=== PATIENT | male | born 1955 | race Caucasian/White ===

== ENCOUNTER 2022-03-31 06:03 | Observation (INO) ==
--- NOTE | 2022-02-28 15:37 | PAT Medication Instructions ---
Medication Instructions Date of Service February 28, 2022 Home Medications amlodipine 5 mg tablet 5 mg PO QAM atorvastatin 20 mg tablet 10 mg PO QAM cetirizine 10 mg tablet (Zyrtec) 10 mg PO QAM cholecalciferol (vitamin D3) 125 mcg (5,000 unit) tablet (Vitamin D3) 125 mcg PO QAM DO NOT take the morning of surgery cetirizine 10 mg tablet (Zyrtec) 10 mg PO QAM cholecalciferol (vitamin D3) 125 mcg (5,000 unit) tablet (Vitamin D3) 125 mcg PO QAM Take morning of surgery With a small sip of water, OTHERWISE NOTHING TO EAT OR DRINK AFTER MIDNIGHT: amlodipine 5 mg tablet 5 mg PO QAM atorvastatin 20 mg tablet 10 mg PO QAM Other Notes If you have any questions please call us at [phone] or [phone] or [phone] or [phone]
--- NOTE | 2022-03-06 09:24 | Anesthesiology Consultation ---
Date of Service March 06, 2022 Assessment & Plan (1) Encounter for pre-operative examination: Chart Review Chart Review: Acceptable Risk for Surgery (pending PCP clearance 03/14/22) and Patient seen in Pre Admission Testing -Awaiting surgeon ordered PCP clearance scheduled 03/14/22 Per PAT appt on 03/06/22, patient denies any recent travel or large group activities. Pt is NOT vaccinated for Covid. Will leave to surgeon's discretion if preop Covid testing needed. Educated on importance of using Covid precautions one week prior to surgery History Surgery Operation Date: 03/31/22 12:25 Proposed Procedures p C5-C6, C6-C7 Anterior Cervical Discectomy and Fusion, Spinal Cord Monitoring - William Lees, Height/Weight Height: 6 ft Weight: 91.1 kg Allergies Allergy/AdvReac Type Severity Reaction Status Date / Time No Known Allergies Allergy Verified 02/28/22 13:46 Medications Home Medications Medication Instructions Recorded Confirmed Last Taken amlodipine 5 mg tablet 5 mg PO QAM 02/28/22 02/28/22 Unknown atorvastatin 20 mg tablet 10 mg PO QAM 02/28/22 02/28/22 Unknown cetirizine 10 mg tablet (Zyrtec) 10 mg PO QAM 02/28/22 02/28/22 Unknown cholecalciferol (vitamin D3) 125 125 mcg PO QAM 02/28/22 02/28/22 Unknown mcg (5,000 unit) tablet (Vitamin D3) Past Medical History Medical History DDD (degenerative disc disease) HLD (hyperlipidemia) HTN (hypertension) Osteoarthritis Exercise / Class Metabolic Activity II 4-5 Yardwork/Stairs/Walk up hill (one flight of stairs- no chest pain or SOB ) Past Family History Family History Other No family history of adverse response to anesthesia Past Surgical History Surgical History History of colonoscopy History of right inguinal hernia repair Past Anesthesia History No Hx of Anesthesia Complications and No Family Hx of Anesthesia Complications History of PONV No Hx of PONV and No Hx of Motion Sickness Social History Smoking Status: Never smoker Do You Dip or Chew Tobacco: No Hx Alcohol Use: Yes Alcohol type: beer alcohol intake frequency: a few times a week Hx Substance Use: No substance use type: does not use Review of Systems Occ reflux- diet dependent- mild Occ snoring - no witnessed apnea- no hx of sleep study Patient denies chest pain, shortness of breath, dyspnea on exertion, cough, wheezing, palpitations. No hx of seizures, stroke, [place]. No hx of blood clots or blood transfusions Physical Exam Vital Signs VITALS BP 156/90 (manually- pt in increased pain/stressed with surgery/pain) P 83 TEMP 98.2 SP02 97% RESP 16 Constitutional no acute distress ENMT Mouth: no TMJ clicking Thyromental Distance: > or= 3.5 Finger Breadths (3.5) Mallampati Class: II Mouth / Teeth: 1. Capped Neck + limited neck extension (significant) Respiratory normal respiratory effort; no respiratory distress Auscultation: lungs clear to auscultation bilaterally; no wheezes Cardiovascular Rate/Rhythm: regular rate and regular rhythm Heart Sounds: no murmur Vessels: no carotid bruit Musculoskeletal Spine: no pain with cervical ROM Extremities: extremities normal to inspection Psychiatric Orientation: alert Lab Results Anesthesia Preop Results Results Anesthesia Widget: WBC 4.96 K/ul (4.8-10.8) 03/06/22 Hgb 17.0 g/dl (14.0-18.0) 03/06/22 Hct 47.3 % (40.1-51.0) 03/06/22 Plt 147 K/uL (130-400) 03/06/22 Na 136 mmol/L (136-145) 03/06/22 K 4.0 mmol/L (3.5-5.1) 03/06/22 Cl 103 mmol/L (98-107) 03/06/22 CO2 27 mmol/L (21-32) 03/06/22 BUN 10 mg/dl (6-23) 03/06/22 Creat 0.75 mg/dl (0.6-1.4) 03/06/22 Glucose Level 89 mg/dl (70-99(Fasting)) 03/06/22 PT 11.0 Seconds (9.0-12.0) 03/06/22 PTT 25.0 Seconds (21.0-31.0) 03/06/22 INR 1.0 (0.9-1.1) 03/06/22 Urine Color Yellow 03/06/22 Urine Appearance Clear (Clear) 03/06/22 Urine pH 8.0 (4.5-7.5) H 03/06/22 Urine Specific [place] 1.010 (1.000-1.030) 03/06/22 Urine Protein Negative (Negative) 03/06/22 Urine Glucose (UA) Trace (Negative) H 03/06/22 Urine Ketones Negative (Negative) 03/06/22 Urine Blood Negative (Negative) 03/06/22 Urine Nitrite Negative (Negative) 03/06/22 Urine Bilirubin Negative (Negative) 03/06/22 Urine Urobilinogen Negative (Negative) 03/06/22 Urine Leukocyte Esterase Negative (Negative) 03/06/22 Blood Type A Negative 03/06/22 Antibody Screen NEGATIVE 03/06/22 Testing Electrocardiogram Date: 03/06/22 Findings: + NSR @ (70bpm) Moderate voltage criteria for LVH, may be normal variant Chest X-Ray Date: 03/06/22 Findings: + NAD COVID-19 Risk Screen Screening Information COVID-19 Screen Date: 03/06/22 Exposure 21 Days Family/Household +COVID Last 21 Days: No Exposure 10 Days Any COVID Exposure Last 10 Days: No Symptoms Last 10 Days Experienced COVID Sx Last 10 Days: No + COVID 0-90 Days COVID + in Last 0-90 Days: No Risk Plan COVID Risk Plan: No Risk Identified Patient Education COVID Preop Screening Education Complete: Yes
[~2022-03-31 06:03] MED LIST: ACETAMINOPHEN 500 MG TAB PO SCH; CeleBREX 200 MG CAP PO SCH; GABAPENTIN 600 MG DOSE PO SCH; LR 15ML/HR IV SCH; ceFAZolin 2000MG 2,000 MG/15 ML SYR IV SCH
[2022-03-31] MEDS ORDERED: ceFAZolin 330 MG/ML 1 GM VIAL ONE (06:43)
[2022-03-31] MEDS ORDERED: PROPOFOL IV EMULSION 10 MG/ML 100 ML VIAL IV ONE (06:49)
[2022-03-31] MEDS ORDERED: ONDANSETRON INJ 2 MG/ML 2 ML VIAL ONE (06:53)
[2022-03-31] MEDS ORDERED: SUCCINYLCHOLINE CHLORIDE 20 MG/ML 10 ML VIAL IV ONE (06:53)
[2022-03-31] MEDS ORDERED: DEXAMETHASONE SOD INJ 4 MG/ML VIAL ONE (06:53)
[2022-03-31] MEDS ORDERED: LIDOCAINE 2% MPF LOCAL 5 ML VIAL INFIL ONE (06:53)
[2022-03-31] MEDS ORDERED: MIDAZOLAM HCL 1 MG/ML 2ML VIAL ONE (06:53)
[2022-03-31] MEDS ORDERED: fentaNYL citrate 100 MCG/2 ML VIAL ONE ×2 (06:53→08:35)
[2022-03-31] MEDS ORDERED: PROPOFOL IV EMULSION 10 MG/ML 20 ML VIAL IV ONE (06:53)
[2022-03-31] MEDS ORDERED: ROCURONIUM BROMIDE 10 MG/ML 5 ML VIAL IV ONE ×2 (06:53→08:36)
[2022-03-31] MEDS ORDERED: ONDANSETRON INJ 2 MG/ML 2 ML VIAL IV PRN ×2 (07:08→11:18)
[2022-03-31] MEDS ORDERED: ATROPINE SULFATE 0.1 MG/ML 10ML SYR IV PRN (07:08)
[2022-03-31] MEDS ORDERED: HYDROmorphone INJ 2 MG/ML SYR/VIAL IV PRN (07:08)
[2022-03-31] MEDS ORDERED: ePHEDrine sulfate 50 MG/ML AMP IV PRN (07:08)
--- NOTE | 2022-03-31 07:39 | History & Physical Bridge Note ---
Date of Service March 31, 2022 History & Physical Bridge Note I have examined the patient, reviewed the History & Physical and in the interval since the performance of the History & Physical I have noted the following changes of clinical significance: no changes noted
--- NOTE | 2022-03-31 07:41 | History & Physical Report ---
Date of Service March 31, 2022 Assessment & Plan (1) Cervical stenosis of spinal canal: Plan: C5-C6 C6-7 anterior cervical discectomy and fusion History of Present Illness Chief Complaint: Neck and arm pain Primary Care Provider: NO PCP 66-year-old with chronic persistent neck and arm pain. Of failed extensive course of nonoperative care is here for surgical intervention. Allergies Allergy/AdvReac Type Severity Reaction Status Date / Time No Known Allergies Allergy Verified 03/31/22 06:26 Home Medications Medication Instructions Recorded Confirmed Type amlodipine 5 mg tablet 5 mg PO QAM 02/28/22 03/31/22 History atorvastatin 20 mg tablet 10 mg PO QAM 02/28/22 03/31/22 History cetirizine 10 mg tablet (Zyrtec) 10 mg PO QAM 02/28/22 03/31/22 History cholecalciferol (vitamin D3) 125 125 mcg PO QAM 02/28/22 03/31/22 History mcg (5,000 unit) tablet (Vitamin D3) Past Med/Surg History Medical History DDD (degenerative disc disease) HLD (hyperlipidemia) HTN (hypertension) Osteoarthritis Surgical History History of colonoscopy History of right inguinal hernia repair Family History Other No family history of adverse response to anesthesia Social History Smoking Status: Never smoker Second Hand Exposure: No; Do You Dip or Chew Tobacco: No; Hx Alcohol Use: Yes Alcohol type: beer Hx Substance Use: No Preferred Language: Urdu Communication Ability: Effective Asian Art Curator Required: No Beliefs That Will Affect Care: None Current Living Situation: Family Feels Safe at Home: Yes Safety Concerns: Feels Safe At This Time Assistive Devices: Glasses Assistive Devices Comment: reading glasses Physical Exam Physical Exam: Patient is alert and oriented Heart regular rhythm Lungs clear Results & Data Results & Data ([facility]) Vital Signs (Past 12 Hours) Vital Signs Temp Pulse Resp BP Pulse Ox O2 Del Method 03/31/22 06:22 36.9 C 82 20 155/102 H 97 Room Air
[2022-03-31] MEDS ORDERED: GLYCOPYRROLATE 0.2 MG/ML VIAL ONE (08:45)
[2022-03-31] MEDS ORDERED: NEOSTIGMINE METHYLSULFATE 1 MG/ML 10ML VIAL ONE (08:45)
--- NOTE | 2022-03-31 09:29 | Operative Report ---
Post Operative Report Pre & Post Diagnosis Operation Date: 03/31/22 07:45 Pre-Op Diagnosis: Cervical spinal stenosis with radiculopathy Post-Op Diagnosis: Same I identified the patient and participated in the time-out.: Yes Procedure Operation Date: 03/31/22 07:45 Actual Procedures #1 anterior cervical discectomy and fusion C5-C6 and C6-C7. #2 anterior cervical arthrodesis C5-C6 C6-C7. #3 placement of Spira 8 mm cage at C5-C6 and 10 mm cage at C6-C7 both filled with I factor. #4 application of moscoso plate and screws from C5-C7. Surgeon William Lees, Gas Welder Sen Fernandez Estimated Blood Loss 10 Findings Consistent with Post-Op Diagnosis Specimens None Indications This is a 66-year-old male who presents above-mentioned diagnosis after failed course of nonoperative care is here for surgical invention. Description of Procedure Patient was met with preoperatively Case discussed all questions were addressed point time. Patient was taken back to operative suite underwent a patient placed in a supine position the Ollie table the head [place] head order. All bony prominences well-padded eyes inspected to ensure no external pressure placed upon the. This point the anterior cervical spine was prepped and draped in normal sterile fashion. The assistance of fluoroscopy identified the C C6 vertebral body and a transverse incision was placed along the right anterior aspect of the cervical spine overlying his region. Blunt dissection with the assistance of bipolar blunt dissection performed down to and exposing the anterior cervical spine from c 5 to C7. A complete discectomy was then performed at C5-C6 out to the uncovertebral's bilaterally. Angle Inlet distractor pins utilized to assist in visualization. Removed all posterior annular fibers longitudinal ligament bilateral foraminotomies performed. Endplates burred to subcortically bone and 8 mm spiral cage filled with I factor tapped in position. Then proceeded to C6-C7. Again complete discectomy performed out to the uncal vertebral joints bilaterally. Angle Inlet distracting pins again utilized. Removed all posterior annular fibers longitudinal ligament bilateral foraminotomies performed. Endplates burred to subcortical bleeding bone and a 10 mm spiral cage filled with I factor tapped in position. Distracting apparatus was removed all anterior osteophytes burred to a smooth cortical surface and a K2 M plate and screws applied with the assistance of fluoroscopy. The incision was then copiously irrigated explored to ensure no damage to surrounding structures or remaining bleeding. 10 round CLIFTON drain inserted. The incision was then closed with 2 Vicryl in the fascia and 4 Monocryl for fascial closure. Steri-Strips dressings placed. Patient waken taken to the PACU in stable condition. Please note spinal cord monitoring visualized at the procedure no changes noted. Barbra Fernandez was present at the entire surgery and while the patient positioning complex portion of the surgery and fascial closure. I attest to the content of the Intraoperative Record and any orders documented therein. Any exceptions are noted below.
--- NOTE | 2022-03-31 10:07 | Fluoroscopy Report ---
FL cervical 2-3V CLINICAL HISTORY: ACDF C5-C6 AND C6-C7 COMPARISON STUDY: None. FLUOROSCOPY TIME: 13 seconds. FLUOROSCOPIC IMAGES: 3 FINDINGS: Fluoroscopy was provided during C5-C7 anterior discectomy and fusion. Hardware is intact. T here is a surgical drain. Endotracheal tube is partially imaged. IMPRESSION: Fluoroscopy provided during C5-C7 anterior discectomy and fusion. ACT 112: Negative or not required by law. Electronically signed by: Asim Nolan M.D. 03/31/2022 10:06 AM
[2022-03-31] MEDS: fentaNYL citrate 100 MCG/2 ML VIAL IV PRN ×4 (10:11→10:27)
--- NOTE | 2022-03-31 11:03 | Anesthesiology Progress Note ---
Date of Service March 31, 2022 Anesthesia Post Procedure Vital Signs Vital Signs: Temp Pulse Pulse Resp BP Pulse Ox O2 Del Method 03/31/22 10:55 91 H 15 142/88 H 96 Nasal Cannula 03/31/22 10:45 36.0 C L 91 H 17 148/99 H 96 Nasal Cannula 03/31/22 10:35 68 10 L 137/85 95 Nasal Cannula 03/31/22 10:25 83 13 140/90 95 Nasal Cannula 03/31/22 10:15 79 14 138/94 91 Room Air 03/31/22 10:05 100 H 17 141/85 H 97 Oxymask 03/31/22 09:55 73 13 124/76 97 Oxymask 03/31/22 09:46 36.3 C L 77 12 132/80 97 Oxymask 03/31/22 06:22 36.9 C 82 20 155/102 H 97 Room Air O2 Flow Rate 03/31/22 10:55 2 03/31/22 10:45 2 03/31/22 10:35 2 03/31/22 10:25 2 03/31/22 10:15 03/31/22 10:05 7 03/31/22 09:55 7 03/31/22 09:46 7 03/31/22 06:22 Pain Intensity Neck: Pain Intensity: 5 Transfer of Care Handoff Completed per policy Notes Mental Status: alert / awake / arousable and participated in evaluation Patient Amnestic to Procedure: Yes Nausea / Vomiting: adequately controlled Pain: adequately controlled Airway Patency, RR, SpO2: stable & adequate BP & HR: stable & adequate Hydration State: stable & adequate Anesthetic Complications: no major complications apparent and Pt Satisfied with anesthetic care
[2022-03-31] MEDS ORDERED: ACETAMINOPHEN 1,000 MG/100 ML VIAL IV PRN (11:18)
[2022-03-31] MEDS ORDERED: RACEPINEPHRINE 2.25% NEBU SOLN 0.5 ML VIAL INH PRN (11:18)
[2022-03-31] MEDS ORDERED: hydrOXYzine HCl 25 MG TAB PO PRN (11:18)
[2022-03-31] MEDS ORDERED: diphenhydrAMINE Capsule 25 MG CAP PO PRN (11:18)
[2022-03-31] MEDS ORDERED: ACETAMINOPHEN 500 MG TAB PO PRN (11:18)
[2022-03-31] MEDS ORDERED: SOD PHOSPHATE/SOD BIPHOSPHATE ENEMA 132 ML BTL PR PRN (11:18)
[2022-03-31] MEDS ORDERED: LORazepam 0.5 MG TAB PO PRN (11:18)
[2022-03-31] MEDS ORDERED: FAMOTIDINE 20 MG TAB PO PRN (11:18)
[2022-03-31] MEDS ORDERED: DO NOT ADMINISTER FLU VACCINE PRN (11:18)
[2022-03-31] MEDS ORDERED: METOCLOPRAMIDE HCL INJ 5 MG/ML 2 ML VIAL IV PRN (11:18)
[2022-03-31] MEDS ORDERED: LACTATED RINGER'S 1,000 ML IV SCH (11:18)
[2022-03-31] MEDS ORDERED: NALOXONE HCL 0.4 MG/1 ML VIAL/CARP IV PRN (11:18)
[2022-03-31] MEDS ORDERED: PROMETHAZINE HCL 12.5 MG in SODIUM CHLORIDE 0.9% 50 ML IV PRN (11:18)
[2022-03-31] MEDS ORDERED: traMADol HCL 50 MG TABLET PO PRN (11:18)
[2022-03-31] MEDS ORDERED: DO NOT ADMINISTER PNEUMOCOCCAL VACCINE PRN (11:18)
[2022-03-31] MEDS ORDERED: HYDROmorphone INJ 0.5 MG/0.5 ML SYR IV PRN (11:18)
[2022-03-31] MEDS ORDERED: ALUMINUM/MAGNESIUM SUSP 30 ML UDC PO PRN (11:18)
[2022-03-31] MEDS ORDERED: LORazepam 0.5 MG in SYRINGE 0 ML IV PRN (11:18)
[2022-03-31] MEDS ORDERED: MAGNESIUM HYDROXIDE SUSP 30 ML UDC PO PRN (11:18)
[2022-03-31] MEDS ORDERED: HYDROmorphone INJ 1 MG/ML SYRINGE IV PRN (11:18)
[2022-03-31] MEDS ORDERED: ONDANSETRON 4 MG OD TAB PO PRN (11:18)
[2022-03-31] MEDS ORDERED: bisacodyL 10 MG SUPP PR PRN (11:18)
[2022-03-31] MEDS ORDERED: dexAMETHasone 8 MG in SYRINGE 0 ML IV PRN (11:18)
--- NOTE | 2022-03-31 13:09 | Hospitalist Consultation ---
Date of Consultation March 31, 2022 Assessment & Plan (1) Cervical stenosis of spinal canal: (2) S/P spinal surgery: This is a 66-year-old male with PMH of hypertension, hyperlipidemia, alcohol use disorder who was POD#0 s/p anterior cervical discectomy and fusion C5-C6 and C6- C7 by Dr. Lees. POD#0 s/p anterior cervical discectomy and fusion C5-C6 and C6-C7 by Dr. Lees Per ortho for pain control, wound care, anticoagulation and activities Monitor H&H (EBL 10ml, pre-op hgb 17), continue incentive spirometry, PT/OT when appropriate (3) HTN (hypertension): BP 138/86 postoperatively. Continue amlodipine (4) Alcohol use disorder: Per preop note, patient admits to consuming 5 to 616 ounce cans of beer nightly. On alcohol withdrawal precautions, gabapentin protocol as needed Ativan, thiamine and folic acid in a.m. (5) HLD (hyperlipidemia): Continue statin PCP: Sharri of the [place] Dispo: Per primary service Patient seen in collaboration with Dr. Brown. Please see addendum. Thank you for this consultation. We will follow the patient with you during their hospital stay. You can reach a member of the [facility] Hospitalist Team 06/11 via [email or web address]. Supervising Physician Co-Signing Physician Notes Care coordinated with Clair Davey PA-C. Agree with above note. Patient seen and examined. Please refer to her notes for full details. Vital signs reviewed. Physical exam: General exam: Alert and oriented. Not in acute distress. Neck s/p cervical spine surgery.on neck collar CVS: S1 and S2 heard, regular rate and rhythm, no murmurs. RS: Clear to auscultation, no wheezing or crackles. ABD: Soft, bowel sounds present, nontender, no distention. HVAC/R INSTRUCTOR: Nonfocal. EXT: No edema, no erythema. Labs: Reviewed. Assessment and plan: 8M with hxof HTN, alcoholism is s/p Cervical spine surgery Cervical spine surgery management as pe ortho Alcoholism started on gabapentin withdrawal protocol with ativan prn po thiamine and folic acid Other diagnosis and plan of care as per Clair Davey PA-C. Avelino dickey MD. History of Present Illness Reason for Consultation: Postop medical management Attending Physician: William M Yoana, DO History of Present Illness This is a 66-year-old male with PMH of hypertension, hyperlipidemia, alcohol use disorder who was POD#0 s/p anterior cervical discectomy and fusion C5-C6 and C6- C7 by Dr. Lees. Patient is feeling well postoperatively. Denies any pain at operative site at this time. No paresthesias or pain in bilateral upper extremities. Paresthesias in left shoulder and ring finger have resolved since surgery. Denies any fever, chills, lightheadedness, chest pain, palpitation, nausea, vomiting, abdominal pain, dysuria, diarrhea constipation. Follows with [place] for primary care. Is on a few routine medications for hypertension, hyperlipidemia and allergies. Endorses 5-6 beers nightly. Last drink last evening at 7 PM. Allergies Allergy/AdvReac Type Severity Reaction Status Date / Time No Known Allergies Allergy Verified 03/31/22 06:26 Home Medications Medication Instructions Recorded Confirmed Type amlodipine 5 mg tablet 5 mg PO QAM 02/28/22 03/31/22 History atorvastatin 20 mg tablet 10 mg PO QAM 02/28/22 03/31/22 History cetirizine 10 mg tablet (Zyrtec) 10 mg PO QAM 02/28/22 03/31/22 History cholecalciferol (vitamin D3) 125 125 mcg PO QAM 02/28/22 03/31/22 History mcg (5,000 unit) tablet (Vitamin D3) oxycodone 5 mg tablet 5 mg PO Q6H PRN pain, severe #30 03/31/22 Rx tabs tramadol 50 mg tablet 50 mg PO Q6H PRN pain, moderate 03/31/22 Rx #30 tabs Patient History Medical History (Updated 03/31/22 @ 13:12 by Clair Davey PA-C) DDD (degenerative disc disease) HLD (hyperlipidemia) HTN (hypertension) Osteoarthritis Surgical History History of colonoscopy History of right inguinal hernia repair Family History Other Hypertension No family history of adverse response to anesthesia Social History Smoking Status: Never smoker Second Hand Exposure: No; Do You Dip or Chew Tobacco: No; Hx Alcohol Use: Yes Alcohol type: beer Alcohol Intake Frequency Comment: 5-6 beers nightly Hx Substance Use: No Preferred Language: Japanese Communication Ability: Effective Industry Segment Specialist Required: No Beliefs That Will Affect Care: None Current Living Situation: Family Feels Safe at Home: Yes Safety Concerns: Feels Safe At This Time Assistive Devices: Glasses Assistive Devices Comment: reading glasses Review of Systems Review of Systems: At least ten systems reviewed and negative except as noted in the HPI. Physical Exam Physical Exam: General Appearance: WD/WN, vitals as above, NAD, sitting up in bed, pleasant, conversing easily Head: normocephalic, atraumatic Eyes: normal inspection, PERRL, conjunctivae normal, anicteric sclerae ENT: external ear and nose normal, oropharynx normal Neck: normal visual inspection, c-collar in place. + Surgical dressing clean, dry, intact. CLIFTON drain visualized Respiratory: normal respiratory effort, lungs clear to auscultation Cardiovascular: regular rate, rhythm, no murmur, normal peripheral pulses, no BLE edema Abdomen/GI: normal bowel sounds, soft, nontender, no hepatosplenomegaly Extremities/Musculoskeletal: no cyanosis or clubbing, extremities motor strength 5/5 Neurologic: PERRL, CN's II-XI intact bilaterally and moves all extremities Psychiatric: A+Ox3, euthymic affect Skin: no rashes, normal color, warm/dry Results & Data Results & Data ([facility]) Vital Signs (Past 12 Hours) Vital Signs Temp Pulse Pulse Resp BP Pulse Ox O2 Del Method 03/31/22 12:55 36.5 C 110 H 14 138/86 95 Nasal Cannula 03/31/22 12:45 Nasal Cannula 03/31/22 12:25 36.8 C 108 H 16 141/90 H 96 Nasal Cannula 03/31/22 11:55 82 13 139/84 96 Nasal Cannula 03/31/22 11:40 87 12 145/89 H 95 Nasal Cannula 03/31/22 11:25 84 15 145/92 H 95 Nasal Cannula 03/31/22 11:10 92 H 16 130/92 94 Nasal Cannula 03/31/22 10:55 91 H 15 142/88 H 96 Nasal Cannula 03/31/22 10:45 36.0 C L 91 H 17 148/99 H 96 Nasal Cannula 03/31/22 10:35 68 10 L 137/85 95 Nasal Cannula 03/31/22 10:25 83 13 140/90 95 Nasal Cannula 03/31/22 10:15 79 14 138/94 91 Room Air 03/31/22 10:05 100 H 17 141/85 H 97 Oxymask 03/31/22 09:55 73 13 124/76 97 Oxymask 03/31/22 09:46 36.3 C L 77 12 132/80 97 Oxymask 03/31/22 06:22 36.9 C 82 20 155/102 H 97 Room Air O2 Flow Rate 03/31/22 12:55 1 03/31/22 12:45 1 03/31/22 12:25 2 03/31/22 11:55 2 03/31/22 11:40 2 03/31/22 11:25 2 03/31/22 11:10 2 03/31/22 10:55 2 03/31/22 10:45 2 03/31/22 10:35 2 03/31/22 10:25 2 03/31/22 10:15 03/31/22 10:05 7 03/31/22 09:55 7 03/31/22 09:46 7 03/31/22 06:22
[2022-03-31] MEDS ORDERED: LORazepam 1 MG TAB PO PRN (13:10)
[2022-03-31] MEDS: FOLIC ACID 1 MG TAB PO SCH (13:56)
[2022-03-31] MEDS: THIAMINE HCL 100 MG TAB PO SCH (13:56)
[2022-03-31] MEDS ORDERED: GABAPENTIN 1200MG ALCOHOL WITHDRAWAL LOAD PO STA (14:44)
[2022-03-31] MEDS ORDERED: GABAPENTIN 600 MG TAB PO ONE (14:44)
[2022-03-31] MEDS: ceFAZolin 2000MG 2,000 MG/15 ML SYR IV SCH ×2 (15:40→23:53)
[2022-03-31] MEDS: oxyCODONE HCL IR 5 MG TAB (IMMEDIATE RELEASE) PO PRN ×2 (15:52→21:25)
[2022-03-31] MEDS ORDERED: DOCUSATE SODIUM/SENNA 50/8.6MG TAB PO SCH (21:00)
[2022-03-31] MEDS: GABAPENTIN 600 MG TAB PO SCH (21:22)
[2022-04-01] MEDS: GABAPENTIN 600 MG TAB PO SCH (02:48)
[2022-04-01] MEDS ORDERED: COUGH DROP (SUGAR FREE) LOZ 24 LOZ/1 BOX BUCCAL PRN (05:31)
[2022-04-01] MEDS ORDERED: POLYETHYLENE (MIRALAX) 17 GM PACK PO SCH (06:00)
[2022-04-01] MEDS: oxyCODONE HCL IR 5 MG TAB (IMMEDIATE RELEASE) PO PRN ×2 (06:38→11:55)
[2022-04-01] MEDS: FOLIC ACID 1 MG TAB PO SCH (08:42)
[2022-04-01] MEDS: THIAMINE HCL 100 MG TAB PO SCH (08:42)
[2022-04-01] MEDS ORDERED: amLODIPine BESYLATE 5 MG TAB PO SCH (09:00)
[2022-04-01] MEDS ORDERED: ATORVASTATIN 10 MG TAB PO SCH (09:00)
[2022-04-01] MEDS ORDERED: CETIRIZINE HCL 10 MG TABLET PO SCH (09:00)
[2022-04-01] MEDS ORDERED: dexAMETHasone 6 MG in SYRINGE 0 ML IV SCH (09:00)
--- NOTE | 2022-04-01 10:29 | Discharge Summary ---
Date of Service April 01, 2022 Admission HPI Per Admitting Provider 66-year-old with chronic persistent neck and arm pain. Of failed extensive course of nonoperative care is here for surgical intervention. Principal Diagnosis Cervical spinal stenosis with radiculopathy Discharge Data Allergies Allergy/AdvReac Type Severity Reaction Status Date / Time No Known Allergies Allergy Verified 03/31/22 06:26 Consultations 03/31/22 11:18 Consult Hospitalist Routine Procedures Performed Operation Date: 03/31/22 07:45 Actual Procedures p C5-C6, C6-C7 Anterior Cervical Discectomy and Fusion, Spinal Cord Monitoring(Not Applicable) - William Lees DO Ordered Studies 03/31/22 07:45 FL cervical 2-3V Routine Hospital Course (1) Cervical stenosis of spinal canal: Patient underwent anterior cervical discectomy fusion tolerated this well was taken to orthopedic for postoperative. Postop day #1 and swallowing well. No hoarseness. Arm symptoms are improved. Excellent strength testing. Safely discharge home. Discharge orders instructions from the chart for further r eview. Total Time Total Time Spent Total Time Spent (In Minutes): 20 minutes Discharge Plan Discharge Items Patient Disposition: Home - Self-Care Reason For Visit: Cervical Disc Disorder with Radiculopathy, Discharge Diagnosis: Cervical stenosis with radiculopathy Activity: As commented below Non-emergency contact: Primary Care Provider Call non-emergency contact if: you have any medication questions Follow-up/Referrals: PCP,NO [Primary Care Provider] - Diet: Regular Addtl Attending Provider Instructions: ACTIVITY RECOMMENDATIONS: SELF CARE INSTRUCTIONS AFTER CERVICAL FUSIONS 1. No smoking. Smoking drastically decreases the chance of a solid fusion. 2. No bending, lifting more than 5 pounds, or twisting (roll like a log when turning in bed). 3. You may shower 3 days after surgery. Thoroughly dry wound. Do not soak in the tub. 4. Cervical collar: Must be worn at all times including sleeping. You may remove the brace only to bath, eat and if you are sitting in a recliner. 5. Please walk as much as you can for exercise. Gradually increase the distance that you walk as your endurance increases. SPECIAL CARE INSTRUCTIONS: VERY IMPORTANT TO READ AND REVIEW A. Do not take any anti-inflammatory medications (i.e. Indocin, Advil, Aspirin, Naprosyn, Aleve, Motrin, etc.) as these may inhibit the chance of a solid fusion. Tylenol is okay to take. B. Your surgical incision has been closed with a cosmetic suture under the skin that will dissolve in about 6 weeks. In 14 days, you can use a pair of clean scissors and cut the suture that is left outside of the skin at the ends of your incision. C. Complications are uncommon, but please contact us if you have any signs or symptoms of: 1. wound infection (fever higher than 102.5 degrees F, redness, separation of wound, drainage, or increasing pain from the incision) 2. blood clots in legs (pain, swelling, redness and warmth in legs) 3. urinary tract infection (fever higher than 102.5 degrees, burning upon urination or increased frequency of urination) 4. nerve problems (inability to walk on your toes or heels, numbness, loss of bowel or bladder control) 5. any other symptoms that concern you. D. Please call the office at if you have any concerns or questions about your operation or recovery. MANAGING PAIN AFTER SPINAL SURGERY 1. Narcotic medication is intended for short-term use and will be provided for surgical pain. Surgical pain usually lasts for a period of 4-6 weeks. Narcotic medication includes Percocet, Vicodin, Darvocet, Tylenol #3 or Lortab. 2. Longer-term pain is more appropriately treated with non-narcotic medication such as Tylenol ES. 3. Muscle spasm is not appropriately treated with narcotics. Muscle relaxers such as Soma, Flexeril or Skelaxin can be used along with Tylenol ES. 4. Remember that we all live with some "aches and pains". This is not unusual or uncommon after an injury or as we get older. 5. We will provide appropriate medication within the normal guidelines of their prescribed use. We will also be very cautious and aware of potential abuse and extended duration of patients' medication needs. 6. Please allow 2-3 days to process refills. Prescriptions will not be mailed but must be picked up at the office. FOLLOW UP VISIT: Keep your scheduled follow-up appointment. Any questions, please call the office at . Pending Studies at Discharge: No Stand-Alone Forms: [facility], Smoking Cessation Medications and DC Order Prescriptions: New tramadol 50 mg tablet 50 mg PO Q6H PRN (Reason: pain, moderate) Qty: 30 0RF oxycodone 5 mg tablet 5 mg PO Q6H PRN (Reason: pain, severe) Qty: 30 0RF Continued atorvastatin 20 mg Tablet 10 mg PO QAM amlodipine 5 mg Tablet 5 mg PO QAM cholecalciferol (vitamin D3) [Vitamin D3] 125 mcg (5,000 unit) Tablet 125 mcg PO QAM cetirizine [Zyrtec] 10 mg Tablet 10 mg PO QAM Discharge Orders: Discharge Order (Routine); Ordered 04/01/22 Ordered By: William Lees Admission Data Admit Date/Time: 03/31/22 09:32 Attending Provider: William Lees Admit Provider: William Lees Primary Care Provider: PCP,NO Other Providers: Jeimy Lima
[2022-04-01] MEDS ORDERED: GABAPENTIN 600 MG TAB PO SCH (10:45)
[2022-04-02] MEDS ORDERED: GABAPENTIN 600 MG TAB PO SCH (14:45)
[2022-04-04] MEDS ORDERED: GABAPENTIN 600 MG TAB PO SCH (02:45)
== END 2022-04-01 12:15 | disposition home or self-care (01) ==
LOC: ASU 06:03 → PACUINP 09:32 → INTOOBSV 09:32 → 3E 12:45
DX: Z79.899 Other long term (current) drug therapy; E78.5 Hyperlipidemia, unspecified; M50.122 Cervical disc disorder at C5-C6 level with radiculopathy; I10 Essential (primary) hypertension; M48.02 Spinal stenosis, cervical region; F10.20 Alcohol dependence, uncomplicated